=== PATIENT | male | born 2000 | race African-American/Black ===

== ENCOUNTER 2021-08-29 18:22 | Emergency (ER) | payer SELFPAY ==
--- NOTE | 2021-08-29 18:32 | ED.URI ---
HPI - URI/Sore Throat General Chief Complaint: Nausea/Vomiting/Diarrhea Stated Complaint: fever leg pains Time Seen by Provider: 08/29/21 18:32 Source: patient and RN notes reviewed History of Present Illness HPI Narrative: Patient is a 21-year-old male who presents the urgent care with complaints of body aches, fever, nausea, vomiting. Patient states that he just woke up a few hours ago with the symptoms. Denies of any known Covid exposures. Patient states that his main concern was Covid and he wants to be tested . Patient has not taken anything [id number] for his symptoms. Patient denies any abdominal pain. Patient has not been Covid vaccinated. No other acute complaints. Patient read the plan of care. Some parts of this dictation were generated by voice recognition software and may contain typographical and/or grammatical inaccuracies. Related Data Home Medications Medication Instructions Recorded Confirmed No Home Medications 08/29/21 08/29/21 Allergies Allergy/AdvReac Type Severity Reaction Status Date / Time No Known Allergies Allergy Verified 08/29/21 18:52 Review of Systems Review of Systems: CONSTITUTIONAL: Reports of chills and sweats EYES: Denies visual changes, redness, or discharge. ENT: Denies rhinorrhea, congestion, sore throat, or otalgia. CARDIOVASCULAR: Denies chest pain, palpitations, or edema. RESPIRATORY: Denies cough or dyspnea. GASTROINTESTINAL: Reports of nausea and vomiting GENITOURINARY: Denies dysuria or hematuria. SKIN: Denies rash or itching. MUSCULOSKELETAL: Denies back pain, joint pain. Reports of body aches NEUROLOGIC: Denies headache, numbness, or weakness. All other systems reviewed are negative, except as documented in HPI. PMFSH Comments At the time of my signature, I reviewed and agree with the nursing past medical, surgical, social, and family history. There is no relevant family history pertinent to the patient complaint. Exam Narrative: GENERAL: This is a well-nourished, well-developed patient, in no apparent distress. HEAD: normocephalic, atraumatic. EYES: PERRL. Sclera clear/white. Vision is grossly intact. EARS: External ears normal, auditory canals clear and without drainage, TMs normal without perforation. Hearing grossly intact. NOSE: External nose normal with no obvious nasal discharge, nares without redness, no rhinorrhea. THROAT: Mucous membranes moist, posterior pharynx clear. Mild to moderate postnasal drainage NECK: Neck supple CARDIOVASCULAR: Regular rate and rhythm without murmurs, gallops, or rubs. RESPIRATORY: Clear to auscultation. Breath sounds equal bilaterally. No wheezes, rales, or rhonchi. GASTROINTESTINAL: Active vomiting on assessment. Abdomen soft, non-tender, nondistended. Bowel sounds are active. No hepato-splenomegaly, or palpable masses. No guarding. SKIN: Diaphoretic. Warm, intact with no suspicious lesions or rash, good texture and turgor. NEURO: awake, alert, and oriented to person, place and time. There were no obvious focal neurologic abnormalities. EXTREMITIES: No clubbing, cyanosis, or edema. Course Course Level of Care: Express Care Visit Vital Signs Vital signs: Vital Signs Temperature 98.4 F 08/29/21 18:37 Pulse Rate 74 08/29/21 18:37 Respiratory Rate 18 08/29/21 18:37 Blood Pressure 77/41 L 08/29/21 18:37 Pulse Oximetry 100 08/29/21 18:37 Temperature 98.4 F 08/29/21 18:37 Pulse Rate 74 08/29/21 18:37 Respiratory Rate 18 08/29/21 18:37 Blood Pressure 77/41 L 08/29/21 18:37 Pulse Oximetry 100 08/29/21 18:37 Reviewed MDM - URI/Sore Throat MDM Narrative Medical decision making narrative: Reviewed lab results with the patient. He is aware that flu swab was negative. You do not qualify for Covid testing considering you have only been symptomatic for 2 hours. Advised the patient to increase his water intake and rest. Use Tylenol/ibuprofen as needed. If symptoms exacerbate, wo
[2021-08-29 18:37] VITALS: BP 77/41; PULSE 74; RESP 18; TEMP 36.9; O2SAT 100
== END 2021-08-29 19:11 | disposition home or self-care (01) ==
PROVIDERS: Emergency Provider Nurse Practitioner Family
DX: R11.2 Nausea with vomiting, unspecified (principal)
CPT/HCPCS: 87804; 99213; G0463

== ENCOUNTER 2024-04-24 12:58 | Emergency (ER) | payer OTHER, SELFPAY ==
[2024-04-24 13:04] VITALS: BP 124/70; PULSE 62; RESP 16; TEMP 36.7; O2SAT 100
--- NOTE | 2024-04-24 13:31 | ED.URI ---
HPI - URI/Sore Throat General Chief Complaint: Upper Respiratory Infection Stated Complaint: nausea/light headed Time Seen by Provider: 04/24/24 13:20 Source: patient, RN notes reviewed and old records reviewed Mode of arrival: ambulatory Limitations: no limitations History of Present Illness HPI Narrative: 24 year old male presents to [facility] care with complaints of flu like symptoms starting today which includes sore throat, nausea and vomiting, body aches, headache. Patient states that he had to leave work today due to illness. Patient reports that he has not taken anything OTC for his symptoms. MD elicited complaint: sore throat and other (nausea and vomiting, body aches and headache) Onset (ago): hour(s) (today) Pain scale (0-10): 5 Able to tolerate fluids by mouth: Yes Treatments prior to arrival: none Related Data Allergies Allergy/AdvReac Type Severity Reaction Status Date / Time No Known Allergies Allergy Verified 04/24/24 13:30 Review of Systems Review of Systems: CONSTITUTIONAL: Reports malaise, no chills, sweats, no known fever. EYES: Denies visual changes, redness, or discharge. ENT: Reports rhinorrhea, congestion,no sinus pain,no otalgia and positive sore throat. CARDIOVASCULAR: Denies chest pain, palpitations, or edema. RESPIRATORY: Reports no cough.? Denies dyspnea. GASTROINTESTINAL: Denies abdominal pain,positive for nausea, vomiting, no diarrhea SKIN: Denies rash or itching. MUSCULOSKELETAL: Positive for myalgia. NEUROLOGIC: Positive for headache. All systems reviewed & are unremarkable except as noted in HPI and below PMFSH Past Medical History Medical History Anxiety GERD (gastroesophageal reflux disease) Family History Family History Father Alcohol abuse Mother Asthma Social History Social History Smoking status: Current every day smoker Alcohol intake: never Substance use: never Substance use type: does not use Comments At time of signature, agree with nursing past medical, surgical, social and family history. There is no relevant family history pertinent to the presenting complaint Exam Narrative: GENERAL: Well-appearing, well-nourished, and in no acute distress. HEAD: Normocephalic EYES: PERRLA, conjunctivae clear ENT: Nares clear, turbinates edematous and erythematous, clear discharge. Mucous membranes moist. TM pearly lakhani with dull light reflex bilaterally; no tragal tenderness. Oropharynx erythematous without lesions. Tonsils red not enlarged and without exudate, no drooling, no hoarseness, no trismus, uvula midline, post nasal drainage. NECK: Supple. No lymphadenopathy CHEST: Clear to auscultation, breath sounds equal. No wheezing, rhonchi, rales, or stridor. No respiratory distress, speaks in full sentences.no acute cough SAO2 100% on room air HEART: Regular rate and rhythm. No murmur heard. GASTROINTESTINAL: Abdomen soft and non distended, no McBurney point tenderness, bowel sounds present all quadrants normal quality, nausea and vomiting, no diarrhea SKIN: Warm, dry, no rash. NEURO: Alert and oriented x3. PSYCH: Normal mood and affect Course Course Emergency Course: Patient is aware of diagnosis, understands and agrees to treatment plan.? Anticipatory guidance given.? Patient agrees to follow-up as directed and is aware of reasons to seek care at the emergency department. Portions of this record may have been created with voice recognition software Level of Care: Express Care Visit Vital Signs Vital signs: Vital Signs Temperature 36.7 C 04/24/24 13:04 Pulse Rate 62 04/24/24 13:04 Respiratory Rate 16 04/24/24 13:04 Blood Pressure 124/70 04/24/24 13:04 Pulse Oximetry 100 04/24/24 13:04 Oxygen Delivery Room Air 04/24/24 13:04 Temperat
[2024-04-24 13:43] LABS: EDINFLUASCREEN Negative; EDINFLUBSCREEN Negative
[2024-04-24 14:20] LABS: EDSTREPNEGPOS1 Negative
== END 2024-04-24 14:14 | disposition home or self-care (01) ==
PROVIDERS: Emergency Provider Registered Nurse; PCP Hospitalist
DX: K52.9 Noninfective gastroenteritis and colitis, unspecified (principal); J02.9 Acute pharyngitis, unspecified; Z20.822 Contact with and (suspected) exposure to COVID-19; F17.200 Nicotine dependence, unspecified, uncomplicated; K21.9 Gastro-esophageal reflux disease without esophagitis
CPT/HCPCS: 87081; 87426; 87804; 87880; 99213; G0463